=== PATIENT | female | born 1985 | race Two or more races ===

== ENCOUNTER 2025-08-21 09:00 | Inpatient (IN) | payer OTHER ==
[~2025-08-21] VITALS: Ht 152.4 cm; Wt 94.8 kg
[2025-08-21] MEDS ORDERED: ATACAND32 MG PO (12:45)
[2025-08-21] MEDS ORDERED: ALLEGRA ALLERG180 MG PO (12:46)
[2025-08-21] MEDS ORDERED: SINGULAIR10 MG PO (12:49)
[2025-08-21] MEDS ORDERED: FLUVOXAMINE MA150 MG PO (12:49)
[2025-08-21] MEDS ORDERED: NORETHIND-ETH1 EAC1 PO (12:49)
[2025-08-21] MEDS ORDERED: XANAX XR0.5 MG PO (12:50)
[2025-08-28] MEDS ORDERED: CEFTRIAXONE SODIUM 2,000 MG VIAL ONE (10:24)
[2025-08-28] MEDS ORDERED: METRONIDAZOLE/SODIUM CHLORIDE 500 MG/100 ML PIGGYBACK IV ONE (10:24)
[2025-08-28] MEDS ORDERED: POVIDONE-IODINE 118 ML BOTT TOP ONE (13:53)
[2025-08-28] MEDS ORDERED: THROMBIN,HU/FIBRINOGEN/CALCIUM 10 ML SYRINGE TOP ONE (15:34)
[2025-08-28] MEDS ORDERED: VISTASEAL DUAL APPICATOR 1 EACH APPL TOP ONE (15:34)
[2025-08-28] MEDS ORDERED: SUGAMMADEX SODIUM 200 MG/2 ML VIAL IV ONE (16:43)
[2025-08-28] MEDS ORDERED: RINGERS SOLUTION,LACTATED 1,000 ML IV SCH (17:02)
[2025-08-28] MEDS ORDERED: ENALAPRILAT DIHYDRATE 1.25 MG/ML VIAL IV PRN (17:30)
[2025-08-28] MEDS ORDERED: MORPHINE SULFATE 4 MG/ML CARTRIDGE IV SCH (18:00)
[2025-08-28] MEDS ORDERED: ACETAMINOPHEN 325 MG TABLET PO SCH (18:00)
[2025-08-28] MEDS ORDERED: ONDANSETRON HCL 2 MG/ML VIAL IV SCH (18:00)
[2025-08-28] MEDS ORDERED: ALBUTEROL SULFATE 3 ML/2.5 MG AMPUL.NEB IH SCH (18:00)
[2025-08-28] MEDS ORDERED: ALBUTEROL SULFATE 3 ML/2.5 MG AMPUL.NEB IH ONE (18:15)
[2025-08-28 19:06] LABS: BASO % 0.3 % (0.1-1.2); EOS # 0.12 (0.04-0.54); EOS % 0.7 % (0.7-7.0); LYMPH # 2.32 (1.18-3.74); LYMPH % 13.0 % (19.3-53.1); MEAN PLATELET VOLUME 10.10 fl (9.4-12.4); MONO # 1.16 (0.24-0.82); MONO % 6.5 % (4.7-12.5); NEUT # 14.08 (1.56-6.13); NEUT % 79.1 % (34.0-71.1); RED CELL DISTRIBUTION WIDTH 14.5 % (11.6-14.4)
[2025-08-28] MEDS ORDERED: ONDANSETRON HCL 2 MG/ML VIAL ONE (19:19)
[2025-08-28 19:46] LABS: BUN CREA RATIO 9.0 (7.0-25.0); CREATININE SERUM 0.55 mg/dL (0.55-1.02); GFR 123.05; GLUCOSE FASTING 81.0 mg/dL (65-100); OSMOLALITY SERUM 278.0 MOSM/KG (275-295)
[2025-08-28 20:04] VITALS: BP 119/76
[2025-08-28] MEDS ORDERED: MONTELUKAST SODIUM 10 MG TABLET PO SCH (21:00)
[2025-08-29 00:35] VITALS: BP 99/60
[2025-08-29 06:47] LABS: BASO % 0.4 % (0.1-1.2); EOS # 0.11 (0.04-0.54); EOS % 0.9 % (0.7-7.0); LYMPH # 2.34 (1.18-3.74); LYMPH % 18.8 % (19.3-53.1); MEAN PLATELET VOLUME 10.60 fl (9.4-12.4); MONO # 1.04 (0.24-0.82); MONO % 8.3 % (4.7-12.5); NEUT # 8.90 (1.56-6.13); NEUT % 71.3 % (34.0-71.1); RED CELL DISTRIBUTION WIDTH 14.5 % (11.6-14.4)
[2025-08-29 07:15] LABS: BUN CREA RATIO 5.0 (7.0-25.0); CREATININE SERUM 0.57 mg/dL (0.55-1.02); GFR 118.08; GLUCOSE FASTING 79.0 mg/dL (65-100); OSMOLALITY SERUM 282.0 MOSM/KG (275-295)
[2025-08-29 08:41] VITALS: BP 116/79
[2025-08-29] MEDS ORDERED: CANDESARTAN CILEXETIL 32 MG TABLET PO SCH ×2 (09:00)
[2025-08-29] MEDS ORDERED: PATIENTS OWN MEDICATION (MEDICAMENTO EN PISO) PO SCH ×2 (09:00)
== END 2025-08-29 12:09 | disposition home or self-care (01) | DRG 399 ==
LOC: O/R 08-28 08:00 → OB/GYN 08-28 08:45
PROVIDERS: Obstetrics & Gynecology Gynecology; Surgery; Urology; ADMIT Student in an Organized Health Care Education/Training Program; ATTEND Student in an Organized Health Care Education/Training Program
PROC: 0UNF4ZZ Release Cul-de-sac, Percutaneous Endoscopic Approach (ICD-10-PCS; 2025-08-28)
PROC: 0T788DZ Dilation of Bilateral Ureters with Intraluminal Device, Via Natural or Artificial Opening Endoscopic (ICD-10-PCS; 2025-08-28)
PROC: 0UT94ZZ Resection of Uterus, Percutaneous Endoscopic Approach (ICD-10-PCS; principal; 2025-08-28 08:45)
PROC: 0DTJ4ZZ Resection of Appendix, Percutaneous Endoscopic Approach (ICD-10-PCS; 2025-08-28 08:45)
PROC: 0UT74ZZ Resection of Bilateral Fallopian Tubes, Percutaneous Endoscopic Approach (ICD-10-PCS; 2025-08-28 08:45)
DX: N80.559 Endometriosis of other parts of the colon, unspecified depth (principal); N80.03 Adenomyosis of the uterus